=== PATIENT | female | born 1990 | race Asian ===

== ENCOUNTER 2018-08-16 21:25 | Emergency (ER) | payer BC ==
[~2018-08-16] VITALS: Ht 167.6 cm; Wt 53.2 kg
[2018-08-16 21:41] VITALS: Ht 167.6 cm; Wt 53.2 kg
[2018-08-16 23:53] VITALS: BP 98/58
== END 2018-08-16 23:53 | disposition home or self-care (01) ==
LOC: ED 21:25
DX: B35.6 Tinea cruris (principal)